=== PATIENT | male | born 1965 | race Caucasian/White ===

== ENCOUNTER 2018-07-26 11:15 | Outpatient (CLI) | payer BC ==
[2018-07-26 12:35] LABS: Hemoglobin 16.3 g/dL (14.0-18.0); Mean Corpuscular HGB CONC 34.5 g/dL (32.0-36.0); Mean Corpuscular Hemoglobin 32.7 pg (27.0-31.0); Mean Corpuscular Volume 94.7 fL (78.0-98.0); Mean Platelet Volume 6.5 fL (7.4-10.4); Platelet Count 282 thou/uL (130-400); RBC Distribution Width 12.3 % (11.5-14.5); Red Blood Cell (RBC) Count 4.98 mill/uL (4.70-6.10); White Blood Cell (WBC) Count 5.9 thou/uL (4.8-10.8)
== END 2018-07-26 11:16 | disposition home or self-care (01) ==
LOC: LABBT 11:15
PROVIDERS: ATTEND Orthopaedic Surgery
DX: Z01.812 Encounter for preprocedural laboratory examination (principal); M77.11 Lateral epicondylitis, right elbow
CPT/HCPCS: 85027

== ENCOUNTER 2018-07-29 07:31 | Day surgery (SDC) | payer BC ==
[2018-07-26 11:37] VITALS: BMI 24.1
[2018-07-29] MEDS ORDERED: Fentanyl 100 MCG/2 ML VIAL ONE ×2 (08:14→09:56)
[2018-07-29] MEDS ORDERED: CEFAZOLIN/Water 2 GM/20 ML SYRINGE ONE (08:57)
--- NOTE | 2018-07-29 12:35 | OP ---
DATE OF PROCEDURE: 07/29/2018 PREOPERATIVE DIAGNOSIS: Right tennis elbow. POSTOPERATIVE DIAGNOSIS: Right tennis elbow. PROCEDURE PERFORMED: Lateral epicondyle debridement open. STAFF: Deon Cain M.D. ASPHALT SCREED OPERATOR: None. ANESTHESIA: Slade. The patient received a supraclavicular block. ESTIMATED BLOOD LOSS: 25 mL. TOURNIQUET TIME: 26 minutes at 200 mmHg. ANTIBIOTICS: Ancef 2 grams. IMPLANTS: None. ESTIMATED BLOOD LOSS: 20 mL. COMPLICATIONS: None. HISTORY OF PRESENT ILLNESS: Mr. 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 He has a history of the onset dementia, tennis elbow, hurts him playing golf. Kecia thompson has had several injections. I discussed with him the risks, benefits of open release, debridement to include pain, scar, bleeding, infection, intraoperative structures, decreased range of motion or s trength, continued pain despite surgical intervention, loss of life or limb. He understood the risks and benefits and elected to proceed. PROCEDURE IN DETAIL: Time out was performed designating the patient's right upper extremity as the o perative site based on sight, consents, markings. I made an incision down onto the skin and then cam e down the patient's epicondyle, created a fascial plane. I expose the entire epicondyle down to cap clementine and lateral and collateral ligament. I ensured the portion of the brachialis, the extensor carp i radialis longus and brevis were exposed and debrided. I took down a portion of the tendon off the tendon, I came down into a little bit of the joint anteriorly, but the patient has stable collateral and collateral ligament. After completion of my debridement, I took a rongeur and debrided off the b one laterally, created a bleeding bone bed as well as rongeured to free up. I ensured that had compl ete release of the brevis. I then closed the fascial plane on top to close the epicondyle with 0 Popeye ryl, 2-0 subcu and 3-0 nylon. The patient was placed in a splint. He will follow up with me in 10-1 4 days. Range of motion as tolerated.
== END 2018-07-29 11:30 | disposition home or self-care (01) ==
LOC: SDC 07:31
PROVIDERS: ATTEND Orthopaedic Surgery
PROC: 0LN30ZZ Release Right Upper Arm Tendon, Open Approach (ICD-10-PCS; principal; 2018-07-29)
DX: M77.11 Lateral epicondylitis, right elbow (principal); F03.90 Unspecified dementia, unspecified severity, without behavioral disturbance, psychotic disturbance, mood disturbance, and anxiety; E78.5 Hyperlipidemia, unspecified; I10 Essential (primary) hypertension; F32.9 Major depressive disorder, single episode, unspecified; Z79.82 Long term (current) use of aspirin; Z79.899 Other long term (current) drug therapy; Z98.890 Other specified postprocedural states
CPT/HCPCS: J3010